=== PATIENT | female | born 1995 ===

== ENCOUNTER → 2021-06-12 | Outpatient (CLI) | payer BC, OTHER ==
[2021-06-14 05:10] LABS: CHLAMYDIA TRACHOMATIS, NAA Negative (Negative)
== END ==
LOC: LAB SHORT 11:40 → LAB 11:40
PROVIDERS: Family Medicine
DX: Z11.3 Encounter for screening for infections with a predominantly sexual mode of transmission (principal)
CPT/HCPCS: 87491; 87591

== ENCOUNTER → 2021-11-05 | Outpatient (CLI) | payer BC, OTHER | LOC: LAB SHORT 07:57 | DX: R87.614 Cytologic evidence of malignancy on smear of cervix (principal) | CPT/HCPCS: 88305; 88341; 88342 ==

== ENCOUNTER → 2023-01-19 | Outpatient (CLI) | payer BC, OTHER ==
[2023-01-20 12:00] LABS: Source, Urine Voided
[2023-01-20 12:32] LABS: Appearance, Urine Clear (Clear); Color, Urine Yellow (P-Yellow)
[2023-01-20 12:33] LABS: Bilirubin, Urine Neg (Neg); Blood, Urine Neg (Neg); Glucose Qualitative, Urine Neg (Normal); Ketones, Urine Neg (Neg); Leukocyte Esterase, Urine Neg (Neg); Nitrite, Urine Neg (Neg); Protein, Urine Neg (Neg); Urobilinogen, Urine NORM (Normal)
== END | disposition home or self-care (01) ==
LOC: LAB 06:21 → LAB SHORT 06:21
PROVIDERS: Internal Medicine Endocrinology, Diabetes & Metabolism
DX: I15.9 Secondary hypertension, unspecified (principal)
CPT/HCPCS: 81003; 82570